=== PATIENT | male | born 1950 | race Caucasian/White ===

== ENCOUNTER 2016-09-02 14:30 | Emergency (ER) | payer OTHER ==
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
== END 2016-09-02 17:55 | disposition home or self-care (01) ==
LOC: CED 14:30
DX: M54.2 Cervicalgia (principal); M54.9 Dorsalgia, unspecified
CPT/HCPCS: 72040; 72072; 72100; 72125; 72131; 73030; 96372; 99284; J2270